=== PATIENT | female | born 1960 | race Caucasian/White ===

== ENCOUNTER 2021-06-28 11:06 | Emergency (ER) | payer SELFPAY ==
[~2021-06-28] VITALS: Ht 167.6 cm; Wt 100.0 kg
[2021-06-28] MEDS ORDERED: KETOROLAC 15 MG/ML VIAL. IVP ONE (11:15)
--- NOTE | 2021-06-28 11:55 | RAD ---
Exam performed: 3 views right knee and right ankle. HISTORY: Fall. DATE OF SERVICE: 06/28/2021. COMPARISON: None available FINDINGS: AP, lateral and oblique views of the right knee are obtained. There is severe narrowing of the patell ofemoral as well as lateral tibiofemoral joint. There is no acute fracture or dislocation. There is a small suprapatellar joint effusion. AP, lateral and oblique views of the right ankle demonstrates normal alignment of the ankle mortise. There is no acute fracture or dislocation. There is diffuse soft tissue stranding around the ankle. N o foreign body. 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 No acute abnormality seen. Small joint effusion noted. Soft tissue swelling around the right ankle. No acute bony abnormality seen. Electronically signed by: Kayla Naylor MD (06/28/2021 11:52 AM) [facility]
[2021-06-28 12:09] VITALS: BP 157/94
[2021-06-28] MEDS ORDERED: KETO10TA PO (12:38)
[2021-06-28] MEDS ORDERED: ORPH-16 PO (12:38)
--- NOTE | 2021-06-28 12:38 | PHYS DOC ---
Past History Past Medical History: No Pertinent History Past Surgical History: Other Additional Past Surgical Histo: LEFT LOWER LEG Smoking: Non-smoker Alcohol Use: Rarely General Adult EDM: Chief Complaint: MECHANICAL FALL HPI: HPI: Patient is a 61 year old female who presents with right knee and low back pain status post mechanical fall. Patient rates her knee pain as severe and low back pain is moderate. Patient states she was walking her dog down her normal route, when she slipped on the red, bumpy part of the sidewalk that was covered in mud. Patient states that she had her full body weight fall onto her left knee, and then fell onto her low back. Patient reports she had her left tibia repaired after a fall during a hike several years ago. Patient denies bowel or bladder incontinence, saddle anesthesia, paresthesias down either leg, focal weakness. Review of Systems: Review of Systems: Constitutional: Denies fever, chills or generalized weakness Eyes: Denies change in visual acuity, visual field deficits or discharge HENT: Denies ear pain, nasal congestion or sore throat Respiratory: Denies cough or shortness of breath Cardiovascular: Denies chest pain, palpitations or edema GI: Denies abdominal pain, nausea, vomiting, bloody stools or diarrhea : Denies dysuria or hematuria Musculoskeletal: See HPI Integument: Denies rash or other skin lesion Neurologic: See HPI Current Medications: Current Meds: Current Medications Medications (Trade) Dose Ordered Sig/Joe Start Time Stop Time Status Last Admin Dose Admin Ketorolac Tromethamine (Toradol 15mg Vial) 15 mg 1X ONCE 06/28/21 11:15 06/28/21 11:35 DC 06/28/21 11:22 15 MG Allergies: Allergies: Allergies Coded Allergies Type Severity Reaction Last Updated Verified No Known Drug Allergies 06/28/21 No Physical Exam: PE: Constitutional: Well developed, well nourished, no acute distress, non-toxic appearance. HENT: Normocephalic, atraumatic, bilateral external ears normal, nose normal. Eyes: EOMI, conjunctiva normal, no discharge. Neck: Normal range of motion, no tenderness, no stridor. Skin: Warm, dry, no erythema, no rash. Back: Lumbar bony tenderness, no step-off. Extremities: Right knee with superolateral swelling and tenderness, gross active range of motion intact in lower extremities, PT pulses 2+ and symmetrical, no cyanosis, no clubbing, ROM intact, no edema. Neurologic: Alert and oriented x4, no focal deficits noted. Current Patient Data: Vital Signs: Vital Signs Date Time Temp Pulse Resp B/P (MAP) Pulse Ox O2 Delivery O2 Flow Rate FiO2 06/28/21 12:09 70 20 157/94 (115) 97 Room Air 06/28/21 11:39 70 20 156/92 (113) 95 Room Air 06/28/21 11:06 98.2 72 20 173/95 (121) 97 Room Air Radiology/Procedures: Radiology/Procedures: PROCEDURE: CT LUMBAR SPINE WO CONTRAST ADDENDUM ADDENDUM #1 Addendum: [facility] Compliance Statement: One or more of the following individualized dose reduction techniques were utilized for this examination: 1. Automated exposure control 2. Adjustment of the mA and/or kV according to patient size 3. Use of iterative reconstruction technique Exam performed: CT scan lumbar spine. Indication: Fall Date of Service: 06/28/2021. Comparison: None available. Technique: Contiguous helical acquisitions of the lumbar spine are [ obtained]. Sagittal and coronal reformatted images are obtained and reviewed. CT lumbar spine findings: Normal sagittal alignment is preserved. Five nonrib-bearing vertebral bodies are identified. There is a compression fracture through the superior endplate of L3 vertebral body with slight loss of anterior height. The remainder vertebral body heights and intervertebral disc spaces are maintained. Mild anterior osteophytes are noted.. No prevertebral soft tissue swelling or mass is detected. The aorta is normal. Impression: 1. Acute Compression fractures of the superior endplate of L3 vertebral body. Electronically signed by: Kayla Naylor MD (06/28/2021 12:15 PM) [facility] Exam performed: 3 views right knee and right ankle. HISTORY: Fall. DATE OF SERVICE: 06/28/2021. COMPARISON: None available FINDINGS: AP, lateral and oblique views of the right knee are obtained. There is severe narrowing of the patellofemoral as well as lateral tibiofemoral joint. There is no acute fracture or dislocation. There is a small suprapatellar joint effusion. AP, lateral and oblique views of the right ankle demonstrates normal alignment of the ankle mortise. There is no acute fracture or dislocation. There is diffuse soft tissue stranding around the ankle. No foreign body. 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 No acute abnormality seen. Small joint effusion noted. Soft tissue swelling around the right ankle. No acute bony abnormality seen. Electronically signed by: Kayla Naylor MD (06/28/2021 11:52 AM) [facility] Heart Score: C/O Chest Pain: No Course & Med Decision Making: Course & Med Decision Making Pertinent Labs and Imaging studies reviewed. (See chart for details) Imaging studies today reveal a slight compression fracture of anterior body of L3. Neurosurgery consult is unavailable at this time. Placed a call to orthopedic group at [facility]. Dr. Coley reassured that the stable is a stable fracture, but their office does not deal with spine injuries. He advises follow-up with pain management and/or primary care. Patient's pain is well controlled with Toradol injection. She states that she is comfortable treating her pain with NSAIDs. Patient informed of all imaging study findings and given resources to establish herself with a primary care provider. Additionally, she was given Dr. Hannon's number for pain management. All the patient's questions were answered. She was placed in an Vega wrap and given crutches for comfort. Return precautions were provided. Work note was provided. Patient understands and is agreeable to discharge plan. Dr. Sung, attending physician in the emergency department, was made aware of patient case and concurred with treatment plan. Mady Disclaimer: Mady Disclaimer: This electronic medical record was generated, in whole or in part, using a voice recognition dictation system. Departure Departure: Impression: Primary Impression: Compression fracture of L3 vertebra Qualified Codes: S32.030A - Wedge compression fracture of third lumbar vertebra, initial encounter for closed fracture Additional Impressions: Contusion of right knee, initial encounter Fall from standing Qualified Codes: W19.XXXA - Unspecified fall, initial encounter Disposition: HOME / SELF CARE / HOMELESS Condition: IMPROVED Referrals: PCP,MARY (PCP) SARIAH LIRA MD Patient Instructions: Back, Compression Fracture, RICE - Routine Care for Injuries, [id number] Additional Instructions: EMERGENCY DEPARTMENT GENERAL DISCHARGE INSTRUCTIONS Thank you for coming to [facility] (ED) today and trusting us with you care. We trust that you had a positive experience in our Emergency Department. If you wish to speak to the department management, you may call the director at [phone]. YOUR FOLLOW UP INSTRUCTIONS ARE FOLLOWS: 1. Follow up with your primary care doctor. If you do not have a primary doctor, please ask for a resource list of physicians or clinics that may be able to assist you with follow up care. 2. The emergency provider has interpreted your imaging studies, if any were ordered. The radiology equal opportunity specialist also reviewed them. If there is a change in the findings, you will be notified in 48 hours when at all possible. 3. If a lab test or culture has been done, your results will be reviewed and you will be notified if you need a change in treatment. 4. Follow instructions verbalized to you and refer to the printouts if needed. ADDITIONAL INSTRUCTIONS AND INFORMATION: 1. Your care today has been supervised by a physician who is specially trained in emergency care. Many problems require more than one evaluation for a complete diagnosis and treatment. We recommend that you schedule your follow up appointment as recommended to ensure complete treatment of you illness or injury. If you are unable to obtain follow up care and continue to have a problem, or if your condition worsens, we recommend that you return to the ED. 2. We are not able to safely determine your condition over the phone nor are we able to give sound medical advice over the phone. For these safety reasons, if you call for medical advice we will ask you to come to the ED for further evaluation. 3. If you have any questions regarding these discharge instructions please call the ED at [phone]. SAFETY INFORMATION: In the interest of safety, wellness, and injury prevention; we encourage you to wear your seat belt, if you smoke; quite smoking, and we encourage family to use a protective helmet for bicycling and other sporting events that present an increased risk for head injury. IF YOUR SYMPTOMS WORSEN OR NEW SYMPTOMS DEVELOP, OR YOU HAVE CONCERNS ABOUT YOUR CONDITION; OR IF YOUR CONDITION WORSENS WHILE YOU ARE WAITING FOR YOUR FOLLOW UP APPOINTMENT; EITHER CONTACT YOUR PRIMARY CARE DOCTOR, THE PHYSICIAN WHOSE NAME AND NUMBER YOU WERE GIVEN, OR RETURN TO THE ED IMMEDIATELY. Scripts Orphenadrine Citrate (ORPHENADRINE CITRATE) 100 Mg Tablet.er 1 TAB PO BID for muscle pain for 10 Days, #20 TAB 0 Refills Prov: RADHA HARRINGTON 06/28/21 Ketorolac Tromethamine (KETOROLAC TROMETHAMINE) 10 Mg Tablet 1 TAB PO TID for pain for 3 Days, #10 TAB Prov: RDAHA HARRINGTON 06/28/21 RADHA HARRINGTON Jun 28, 2021 12:38
== END 2021-06-28 12:50 | disposition home or self-care (01) ==
LOC: ER 11:06
DX: S32.030A Wedge compression fracture of third lumbar vertebra, initial encounter for closed fracture (principal); S80.01XA Contusion of right knee, initial encounter; W18.39XA Other fall on same level, initial encounter; Y93.K1 Activity, walking an animal; Y92.89 Other specified places as the place of occurrence of the external cause; Y99.8 Other external cause status
CPT/HCPCS: 72131; 73562; 73610; 96374; 99284; J1885